=== PATIENT | male | born 1995 | race Caucasian/White ===

== ENCOUNTER 2019-02-15 14:41 | Emergency (ER) | payer MEDICAID, OTHER ==
[~2019-02-15] VITALS: Ht 177.8 cm; Wt 145.4 kg
[~2019-02-15 14:41] MED LIST: IBUP-1984 PO
[2019-02-15 15:02] VITALS: BP 153/96
== END 2019-02-15 15:51 | disposition home or self-care (01) ==
LOC: ER 14:42
DX: J06.9 Acute upper respiratory infection, unspecified (principal); F31.9 Bipolar disorder, unspecified; Z87.891 Personal history of nicotine dependence; Z79.899 Other long term (current) drug therapy
CPT/HCPCS: 99281

== ENCOUNTER 2021-03-02 13:23 | Emergency (ER) | payer MEDICAID, OTHER ==
[~2021-03-02] VITALS: Ht 180.3 cm; Wt 148.9 kg
[2021-03-02 14:00] VITALS: BP 169/106
== END 2021-03-02 16:27 | disposition home or self-care (01) ==
LOC: ER 13:23
DX: S60.221A Contusion of right hand, initial encounter (principal); M79.641 Pain in right hand; F31.9 Bipolar disorder, unspecified; Z72.89 Other problems related to lifestyle; Z79.899 Other long term (current) drug therapy; X58.XXXA Exposure to other specified factors, initial encounter; Y93.89 Activity, other specified; Y92.89 Other specified places as the place of occurrence of the external cause; Y99.8 Other external cause status
CPT/HCPCS: 29125; 73130; 99283

== ENCOUNTER 2022-01-12 23:37 | Emergency (ER) | payer MEDICAID ==
[~2022-01-12] VITALS: Ht 180.3 cm; Wt 143.2 kg
[2022-01-12 23:52] VITALS: BP 169/110
== END 2022-01-13 06:32 | disposition left against medical advice (07) ==
LOC: ER 23:38
DX: H66.90 Otitis media, unspecified, unspecified ear (principal); Z53.21 Procedure and treatment not carried out due to patient leaving prior to being seen by health care provider

== ENCOUNTER 2022-09-23 05:20 | Day surgery (SDC) | payer MEDICAID ==
[2022-09-15 14:44] LABS: CLARITY,URINE CLEAR (Clear); COLOR,URINE YELLOW (Yellow); GLUCOSE, URINE NEGATIVE (Neg); KETONES,URINE NEGATIVE (Neg); LEUKOCYTE ESTERASE ,URINE NEGATIVE (Neg); NITRITES, URINE NEGATIVE (Neg); OCCULT BLOOD,URINE NEGATIVE (Neg); PROTEIN,URINE NEGATIVE (Neg)
[2022-09-15 14:46] LABS: UA COLLECTION TYPE CLN CATCH MIDSTREAM
[2022-09-15 14:49] LABS: BASOPHILS # (AUTO) 0.1 X10'3 (0-0.2); BASOPHILS % (AUTO) 0.6 % (0-1); EOSINOPHILS # (AUTO) 0.1 X10'3 (0-0.9); EOSINOPHILS % (AUTO) 0.8 % (0-6); LYMPHOCYTES # (AUTO) 2.1 X10'3 (1.1-4.8); LYMPHOCYTES % (AUTO) 21.7 % (21-51); MEAN CORPUSCULAR HEMOGLOBIN 29.3 PG (27.0-31.0); MEAN CORPUSCULAR HGB CONC 32.9 g/dL (33.0-36.5); MEAN PLATELET VOLUME 8.9 FL (7.4-10.4); MONOCYTES # (AUTO) 0.7 X10'3 (0-0.9); MONOCYTES % (AUTO) 7.2 % (2-12); NEUTROPHILS # (AUTO) 6.8 X10'3 (1.8-7.7); NEUTROPHILS % (AUTO) 69.7 % (42-75); PRE OP HEMATOCRIT 45.9 % (42.0-52.0); PRE OP HEMOGLOBIN 15.1 g/dL (14.0-17.9); PRE OP PLATELET COUNT 276 X10'3 (140-440); RED BLOOD COUNT 5.16 X10'6 (4.70-6.10); RED CELL DISTRIBUTION WIDTH 13.3 % (11.5-14.5)
[2022-09-15 14:59] LABS: ALBUMIN 3.8 G/DL (3.4-5.0); ALBUMIN/GLOBULIN RATIO 0.9 (1.1-1.5); ALKALINE PHOSPHATASE 88 IU/L (46-116); BLOOD UREA NITROGEN 14 MG/DL (7-18); BUN/CREATININE RATIO 20.3 (10.0-20.0); CALCIUM 9.4 MG/DL (8.5-10.1); CHLORIDE 105 MMOL/L (99-107); CREATININE 0.69 MG/DL (0.60-1.10); PRE OP ALT 28 U/L (30-65); PRE OP ANION GAP 8 (8-16); PRE OP AST 15 U/L (10-37); PRE OP BILIRUB, TOTAL 0.7 MG/DL (0.0-1.0); PRE OP GLUCOSE 85 MG/DL (70-104); PRE OP POTASSIUM 4.2 MMOL/L (3.4-5.1); PRE OP SODIUM 142 MMOL/L (135-145); TOTAL CARBON DIOXIDE 28.9 MMOL/L (24-32); eGFR > 90 ML/MIN
[~2022-09-23] VITALS: Ht 180.3 cm; Wt 161.5 kg
[2022-09-23] VITALS (9 sets, daily range): BP systolic 137–179; BP diastolic 79–115
[~2022-09-23 05:20] MED LIST changes: -IBUP-1984 PO; +NO HOME MEDS; +ringers solution, lacted 1,000 ML IV SCH
[2022-09-23] MEDS ORDERED: famotidine 20mg tablet PO ONE (05:30)
[2022-09-23] MEDS ORDERED: ceFAZolin inj. 3,000 MG in normal saline 100ml IV soln 100 ML IV ONE (05:30)
[2022-09-23] MEDS ORDERED: BUPIVAcaine/PF 2.5 mg/ml (0.25%) 30ml vial ONE (06:47)
[2022-09-23] MEDS ORDERED: midazolam 1 mg/ML 2ml injection ONE ×2 (07:07→07:15)
[2022-09-23] MEDS ORDERED: sevoflurane 250ml liquid IH ONE (07:13)
[2022-09-23] MEDS ORDERED: ondansetron/PF 4mg/2ml inj ONE ×2 (07:13→09:42)
[2022-09-23] MEDS ORDERED: fentaNYL/PF 50MCG/1 ML 2ML syringe ONE ×2 (07:15→08:50)
[2022-09-23] MEDS ORDERED: propofol inj 20 ML IV ONE (07:15)
[2022-09-23] MEDS ORDERED: dexamethasone sod phosphate 4mg/ml inj. ONE (07:30)
[2022-09-23] MEDS ORDERED: bacitracin 15gm ointment TP ONE ×2 (07:45→07:49)
[2022-09-23] MEDS ORDERED: BUPIVAcaine/PF 2.5 mg/ml (0.25%) 30ml vial IJ ONE (07:49)
--- NOTE | 2022-09-23 09:13 | NUR ---
Received from OR via , accompanied by Anesthesiologist JENNIFER AND OR NURSE and report given by Anesthesiolgist. PT IS DROWSY YET RESPONDS TO VERBAL STIMULI. RT ANKLE WITH GAUZE AND [place] WRAP; CDI. DENIES PAIN OR DISCOMFORT. 20G TO RT FA WITH PACU LR RUNNING. Addendum: 09/23/22 at 0971 by Rossana Coleman RN Amended: Links added.
[2022-09-23] MEDS ORDERED: morphine 4 MG/ML inj SYRINge IV PRN (09:30)
[2022-09-23] MEDS ORDERED: meperidine/PF 25mg/ml syringe IV PRN ×3 (09:30)
[2022-09-23] MEDS ORDERED: proCHLORperazine 10 MG/2 ml inj IV PRN (09:30)
[2022-09-23] MEDS ORDERED: ondansetron/PF 4mg/2ml inj IV PRN (09:30)
[2022-09-23] MEDS ORDERED: ringers solution, lacted 1,000 ML IV SCH (09:30)
[2022-09-23] MEDS ORDERED: morphine 2 MG/ML inj. syringe IV PRN (09:30)
[2022-09-23] MEDS ORDERED: labetalol 20mg/4ml (5mg/ml) syringe IV PRN (09:30)
--- NOTE | 2022-09-23 10:33 | NUR ---
ALL DISCHARGE CRITERIA HAS BEEN MET. VSS, PAIN AT A TOLERABLE LEVEL, VOIDING AND ABLE TO SAFELY AMBULATE AND TRANSFER SELF. IV TAKEN OUT WITHOUT ANY COMPLICATIONS. ALL DISCHARGE INSTRUCTIONS COVERED WITH PATIENT AND ALL QUESTIONS ANSWERED. PATIENT TAKEN OUT VIA WHEELCHAIR TO PERSONAL VEHICLE WHERE FAMILY/FRIEND DROVE PATIENT HOME. Addendum: 09/23/22 at 1040 by Rossana Coleman RN Amended: Links added.
== END 2022-09-23 10:33 | disposition home or self-care (01) ==
LOC: PAS 05:20
PROVIDERS: ATTEND Podiatrist Foot & Ankle Surgery
DX: T84.84XA Pain due to internal orthopedic prosthetic devices, implants and grafts, initial encounter (principal); M65.871 Other synovitis and tenosynovitis, right ankle and foot; M25.371 Other instability, right ankle; E66.01 Morbid (severe) obesity due to excess calories; Z68.42 Body mass index [BMI] 45.0-49.9, adult; F31.9 Bipolar disorder, unspecified; F90.9 Attention-deficit hyperactivity disorder, unspecified type; Z98.890 Other specified postprocedural states; Z72.89 Other problems related to lifestyle; Z79.82 Long term (current) use of aspirin; Z79.899 Other long term (current) drug therapy; Z87.891 Personal history of nicotine dependence; Y83.8 Other surgical procedures as the cause of abnormal reaction of the patient, or of later complication, without mention of misadventure at the time of the procedure; Y92.89 Other specified places as the place of occurrence of the external cause
CPT/HCPCS: 20680; 27829; 29895; 36415; 73600; 76000; 80053; 81003; 82948; 85025; A6222; C1713; J0690; J0780; J1100; J2250; J2405; J2704; J3010; J3490; J7120; Z7506; Z7508; Z7512; A4618; A6449; A7000

== ENCOUNTER 2024-05-23 14:18 | Emergency (ER) | payer MEDICAID ==
[~2024-05-23] VITALS: Ht 180.3 cm; Wt 161.4 kg
[~2024-05-23 14:18] MED LIST changes: -ringers solution, lacted 1,000 ML IV SCH
[2024-05-23 14:20] VITALS: BP 187/100; PULSE 104; RESP 20; TEMP 98.7; O2SAT 98
[2024-05-23] MEDS ORDERED: BENZ-38 PO (15:39)
[2024-05-23] MEDS ORDERED: ALBU8HFA INH (15:39)
== END 2024-05-23 15:56 | disposition home or self-care (01) ==
LOC: ER 14:19
DX: B34.9 Viral infection, unspecified (principal); F31.9 Bipolar disorder, unspecified; Z72.89 Other problems related to lifestyle
CPT/HCPCS: 99283